=== PATIENT | male | born 1960 | race American Indian/Alaskan Native ===

== ENCOUNTER 2017-05-28 07:12 | Day surgery (SDC) | payer BC ==
[2017-05-27 14:22] VITALS: BMI 34.7
[2017-05-28] MEDS ORDERED: Oxymetazoline HCl 0.05% ( 15 ML ) ONE ×2 (08:21→09:38)
[2017-05-28] MEDS ORDERED: Lidocaine 1% w/Epinephrine 1:200K 30 ML VIAL ONE (09:38)
[2017-05-28] MEDS ORDERED: Bacitracin Zinc Ointment 30 gm TUBE ONE (09:38)
[2017-05-28] MEDS ORDERED: Fentanyl 250 MCG/5 ML VIAL ONE (09:44)
[2017-05-28] MEDS ORDERED: Midazolam HCl 2 mg/2 ml Vial ONE (09:48)
[2017-05-28] MEDS ORDERED: Ondansetron HCl/PF 4 MG/2 ML Vial ONE (11:45)
[2017-05-28] MEDS ORDERED: Glycopyrrolate 0.2 MG/ML 5 ML SYRINGE ONE (11:45)
[2017-05-28] MEDS ORDERED: Dexamethasone 20 MG/5 ML VIAL ONE ×2 (11:45)
[2017-05-28] MEDS ORDERED: PROPOFOL 200 MG/20 ML VIAL ONE (11:45)
[2017-05-28] MEDS ORDERED: HYDROcodone/Acetaminophen 5/325 mg Tablet ONE (12:57)
--- NOTE | 2017-05-29 14:55 | OP ---
DATE OF PROCEDURE: 05/28/2017 PREOPERATIVE DIAGNOSES: 1. Chronic rhinosinusitis. 2. Nasal septal deviation. 3. Bilateral inferior turbinate hypertrophy. 4. Nasal polyposis. POSTOPERATIVE DIAGNOSES: 1. Chronic rhinosinusitis. 2. Nasal septal deviation. 3. Bilateral inferior turbinate hypertrophy. 4. Nasal polyposis. PROCEDURE: 1. Bilateral ____. 2. Bilateral endoscopic sinus surgery, maxillary antrostomies. 3. Bilateral endoscopic sinus surgery, sphenoidotomies. 4. Bilateral endoscopic sinus surgery, frontal sinusotomies. 5. Nasal septoplasty. 6. Bilateral inferior turbinate submucosal resection. SURGEON: Dr. Chon Nolan ESTIMATED BLOOD LOSS: 0 mL. COMPLICATIONS: None. ANESTHESIA: GETA. PROCEDURE IN DETAIL: Patient was taken to the operating room and placed supine on the table. General endotracheal anesthesia was obtained by the Anesthesia staff. Tube was secured in the left lower lip. Patient was then placed in the beach chair position, and Afrin pledgets were placed in the nasal cav ity. Injections of 1% lidocaine with 1:100,000 epinephrine were made into the nasal septum as well a s the inferior turbinates. Patient was then prepped and draped in standard surgical fashion for nasal surgery. Following this, the Afrin pledgets were removed. A Ja incision was made on the left na alvaro septum. Submucoperichondrial dissection was performed. The deviated portions of the septum includ ed portions of the cartilage and the bony septum. These isolated areas were removed using three cutti ng rongeurs. There was noted to be a large dorsal and caudal strut, left intact for support of the no se. The mucoperichondrial flaps were then reapproximated using a 4-0 gut stitch. Any straight pieces of cartilage were crushed prior to this and placed between the mucoperichondrial flaps. Following thi s, the inferior turbinates were then punctured with a submucosal coblation wand, and submucosal cobla tions were performed of multiple areas of the inferior portion of the anterior inferior turbinate. Please note the submucosal microdebrider was used to submucosally resect the anterior inferior portio ns of the inferior turbinates, bilateral. Following this, inferior turbinates were laterally fractur ed with a [employer] elevator. Following this, the 0 degree scope was advanced into the middle meatus are a. The middle turbinate was identified and was medially fractured with a [employer] elevator. The uncina te process was then anteriorly fractured using a ball-ended probe and then was removed using the micr odebrider and straight Blakesley forceps. Following this, the natural maxillary ostia was identified with a ball-ended probe and was then gently widened using the microdebrider. Following this, the et hmoidal bulla was defined was punctured on its anterior and medial aspect and was removed using 0 deg ree microdebrider. The grand lamella was identified and was then punctured with a posterior ethmoida l cells. Working from posterior to anterior 35 the frontal sinus reces s and frontal sinus ostia widening the frontal sinus ostia bilaterally. Following this, the 0 degree scope and the 0 degree microdebrider was advanced, staying medial to the middle turbinate where the attachment of the superior turbinate to posterior nasal wall was identified staying just medial and i nferior to this area. The sphenoidotomies were created bilaterally with the Morfin tip suction and then widened medially and inferiorly with the microdebrider. Following this, the nasal cavity was ir rigated. Meropacks were placed. All splints were placed and secured.
--- NOTE | 2017-06-01 08:46 | EKG ---
Test Reason : PREOP Blood Pressure : / mmHG Vent. Rate : 053 BPM Atrial Rate : 053 BPM P-R Int : 186 ms QRS Dur : 104 ms QT Int : 460 ms P-R-T Axes : 039 -21 -03 degrees QTc Int : 431 ms Sinus bradycardia Otherwise normal ECG No previous ECGs available Confirmed by BRANDY MAJOR, HENRIETTA ([id number]) on 06/01/2017 8:45:52 AM Referred By: SANDHYA Confirmed By:HENRIETTA NAVA MD
== END 2017-05-28 13:25 | disposition home or self-care (01) ==
LOC: SDC 07:12
PROVIDERS: ATTEND Otolaryngology Plastic Surgery within the Head & Neck
DX: J32.8 Other chronic sinusitis (principal); J34.3 Hypertrophy of nasal turbinates; J34.2 Deviated nasal septum; J33.9 Nasal polyp, unspecified; H91.90 Unspecified hearing loss, unspecified ear; G47.30 Sleep apnea, unspecified; E66.9 Obesity, unspecified; Z68.34 Body mass index [BMI] 34.0-34.9, adult; Z79.82 Long term (current) use of aspirin; Z79.899 Other long term (current) drug therapy; Z87.891 Personal history of nicotine dependence
CPT/HCPCS: 93005; 93010; J1100; J2250; J2405; J2704; J3010